=== PATIENT | female | born 1990 | race Caucasian/White ===

== ENCOUNTER → 2017-03-25 | Outpatient (CLI) | payer BC | LOC: MC.RAD 09:37 | DX: N63.10 Unspecified lump in the right breast, unspecified quadrant (principal) ==

== ENCOUNTER 2017-05-21 12:45 | Outpatient (RCR) | payer OTHER | END 2017-07-23 10:28 | disposition home or self-care (01) | LOC: WSOH 12:45 | DX: S83.012A Lateral subluxation of left patella, initial encounter (principal); W01.0XXA Fall on same level from slipping, tripping and stumbling without subsequent striking against object, initial encounter; Y92.218 Other school as the place of occurrence of the external cause; Y93.F9 Activity, other caregiving; Y99.0 Civilian activity done for income or pay | CPT/HCPCS: 24774; L1810 ==

== ENCOUNTER 2021-01-03 21:55 | Inpatient (IN) | payer BC ==
[~2021-01-03] VITALS: Ht 160 cm; Wt 86.4 kg
--- NOTE | 2021-01-03 22:05 | NUR ---
2204-PT PRESENTS TO LDR COMPLAINING OF CONTRACTIONS, AMBULATORY TO ROOM LR2, CHANGED INTO GOWN. 2219- EFM X2 APPLIED. PT REPORTS CONTRACTIONS 2-4 MINUTES APART. DENIES LEAKING AMNIOTIC FLUID, VAGINAL BLEEDING. STATES SHE IS FEELING THE BABY MOVE. PLAN OF CARE FOR LABOR CHECK DISCUSSED AND QUESTIONS ANSWERED. 2224- SVE BY THIS NURSE 3. DISCUSSED WATCHING PT ON MONITOR AND RECHECKING CERVIX. PT AGREEABLE WITH THIS PLAN OF CARE. 2229- NURSING ADMISSION HISTORY AND ASSESSMENT COMPLETE. 2321- PT CALLS OUT STATING HER WATER HAS BROKEN. NURSE TO BEDSIDE. LARGE PUDDLE OF CLEAR FLUID ON BUTTOCKS PAD. AMNITRACE TURNS POSITIVE. SVE BY THIS NURSE . PT STATES SHE IS VERY UNCOMFORTABLE AND WOULD LIKE AN EPIDURAL NOW. WILL NOTIFY DR. 2330- DR ROLES IN DELIVERY BUT NOTIFIED OF PT SROM, SVE, AND DESIRE FOR EPIDURAL. ORDERS FOR ADMISSION, EPIDURAL, AND GBS PROTOCOL.
[2021-01-03] MEDS ORDERED: NATURAL IRON65 MG (22:40)
[2021-01-03] MEDS ORDERED: PRENATAL VITAMI1 TA3 PO (22:40)
[2021-01-03] MEDS ORDERED: COLACE 100100 MG/CAP PO (22:41)
[2021-01-03 23:00] VITALS: BP 130/75; PULSE 98; TEMP 98
[2021-01-04] VITALS (27 sets, daily range): BP systolic 102–154; BP diastolic 49–101; PULSE 78–131; TEMP 97.1–98.5
--- NOTE | 2021-01-04 00:15 | NUR ---
2358- OLE GAONA IN ROOM FOR EPIDURAL PLACEMENT. PT SITTING UP AT BEDSIDE FOR PLACEMENT. 0005- TEST DOSE GIVEN BY Praveena MILTON CRNA. TOLERATED WELL. 0011- PT REPOSITIONED FOLLOWING EPIDURAL PLACEMENT INTO [place] POSITION.
--- NOTE | 2021-01-04 00:22 | NUR ---
0022- LATE PROLONGED DECELERATION NOTED TO THE 60'S. SVE PERFORMED, /-2, PT TURNED TO LEFT LATERAL, EPHEDRINE 10MG GIVEN IV. FHT'S NOT IMPROVING. TURNED TO RIGHT LATERAL. O2 ON A 10L PER FACE MASK, FHT'S NOT IMPROVING. PT TURNED TO HANDS AND KNEES. FHT'S IMPROVE AFTER APPROXIMATELY 6 MINUTES. BP IMPROVED TO 131/64.
[2021-01-04 00:40] LABS: BASO % 0.3 % (0.0-2.0); EOS % 0.1 % (0-4.0); GRAN # 11.5 (1.4-6.5); GRAN % 79.3 % (42.2-75.2); HEMOGLOBIN 12.1 g/dl (12.5-16.0); LYMPH # 2.1 (1.2-3.4); LYMPH % 14.4 % (20.0-51.0); MEAN CELL VOLUME 85 fl (80.0-100.0); MEAN CORPUSCULAR HEMOGLOBIN 29 pg (27.0-31.0); MEAN CORPUSCULAR HGB CONC 34 g/dl (33.0-37.0); MEAN PLATELET VOLUME 12.6 fl (7.4-10.4); MONO # 0.7 (0.1-0.6); MONO % 4.7 % (1.7-9.3); PLATELET COUNT 239 K/mm3 (130-400); REDCELL DISTRIBUTION WIDTH-CV 13.4 % (11.5-14.5)
[2021-01-04 00:43] LABS: HEMATOCRIT 35.5 % (37.0-47.0)
--- NOTE | 2021-01-04 03:04 | NUR ---
SVE OF COMPLETE/-1, ATTEMPTED 1 PRACTICE PUSH WITH THIS NURSE. REPOSITIONED INTO LEFT LATERAL WITH RIGHT LEG IN STIRRUP TO LABOR DOWN.
--- NOTE | 2021-01-04 03:51 | NUR ---
PT BEGINS PRACTICE PUSHING WITH THIS NURSE. 0358- PELON MILLER'D, 350MLS URINE OUT.
--- NOTE | 2021-01-04 05:00 | NUR ---
0440- DR SADLER IN ROOM FOR DELIVERY. 0448- SPONTANEOUS VAGINAL DELIVERY OF VIABLE BABY BOY. BABY TO MOTHER'S CHEST, CORD CLAMPED AND CUT BY DR. SADLER. BABY DRIED AND STIMULATED, BABY TO WARMER, BABY CARES ASSUMED BY Francisco J NAVARRO RN. 0452- SPONTANEOUS DELIVERY OF INTACT PLACENTA. PITOCIN STARTED AT 333MLS/HR PER PROTOCOL. 0455- DR. SADLER INJECTS LIDOCAINE PRIOR TO REPAIR OF 2ND DEGREE LACERATION. 0500- RECOVERY STARTED.
[2021-01-05 08:30] VITALS: BP 122/75; PULSE 79; TEMP 98
[2021-01-05] MEDS ORDERED: IBU800 M1 PO (08:32)
== END 2021-01-05 12:45 | disposition home or self-care (01) | DRG 807 ==
LOC: LDRO 21:55 → LDR 22:05 → LDRO 23:28 → LDR 23:30 → OB 01-04 08:00
PROVIDERS: Obstetrics & Gynecology; ADMIT Student in an Organized Health Care Education/Training Program
PROC: 10E0XZZ Delivery of Products of Conception, External Approach (ICD-10-PCS; principal; 2021-01-03)
PROC: 0KQM0ZZ Repair Perineum Muscle, Open Approach (ICD-10-PCS; 2021-01-03)
DX: O48.0 Post-term pregnancy (principal); Z37.0 Single live birth; Z3A.41 41 weeks gestation of pregnancy
CPT/HCPCS: J2540; J2590; J7120

== ENCOUNTER → 2021-02-24 | Outpatient (CLI) | payer BC ==
[~2021-02-24] MED LIST: COLACE 100100 MG/CAP PO; IBU800 M1 PO; NATURAL IRON65 MG; PRENATAL VITAMI1 TA3 PO
== END ==
LOC: COL.RAD 09:16
DX: K76.0 Fatty (change of) liver, not elsewhere classified (principal); Z90.49 Acquired absence of other specified parts of digestive tract